=== PATIENT | female | born 1930 | race Caucasian/White ===

== ENCOUNTER 2018-11-11 10:18 | Emergency (ER) | payer MEDICARE, OTHER, MEDICAID ==
[2018-11-11] MEDS ORDERED: Sodium Chloride 0.9% 1,000 ML IV ONE ×2 (10:50→12:25)
[2018-11-11 11:23] LABS: ANION GAP 12.4 mmol/L (5-15); CHLORIDE,CL 102 mmol/L (98-115); SODIUM,NA 140 mmol/L (136-145)
[2018-11-11] MEDS ORDERED: Metoprolol Tartrate 5 MG/5 ML SDV IVPUSH ONE ×2 (12:11→12:52)
--- NOTE | 2018-11-11 12:18 | CR ---
[id number] RAD/RAD Chest PA And Lateral EXAM: RAD Chest PA And Lateral INDICATION: TACHYCARDIC, SHORTNESS OF BREATH. PATIENT HAS BAD LEFT COMPARISON: 2008. DISCUSSION: Cardiomediastinal silhouette is normal in size and contour. No infiltrate, effusion, pneumothorax, or edema. IMPRESSION: No acute findings in the chest. Onesimo Noguera MD 11/11/18 3609 Thank you for allowing us to participate in the care of your patient.
--- NOTE | 2018-11-11 13:56 | EDM.PDOC ---
ED HPI GENERAL MEDICAL PROBLEM - General Chief Complaint: General Stated Complaint: HR HIGH, BP LOW Time Seen by Provider: 11/11/18 10:30 Source of Information: Reports: Patient, Family (daughter) - History of Present Illness INITIAL COMMENTS - FREE TEXT/NARRATIVE: 88-year-old female presents to the emergency room with hypotension and tachycardia. She reports no symptoms. No dizziness. No chest pain. No shortness of breath. Her heart rate was running in the 120s to 130s. Her blood pressures were 80/40. She does take atenolol for high blood pressure. She is an ambulator uses a walker. She denies any recent illness fever chills nausea vomiting. She recently transferred to the [facility] where her daughter lives. She formerly lived in the fpc at [place] which now is closing. Her primary care doctor in the past is been Rashad Saha. She is now being cared for by the [facility] and [facility]. She has no complaints or concerns. She has no history of coronary artery disease or heart attack. No history of stroke. She feels in her normal state of health at this time. Onset: Today Onset Date: 11/11/18 Duration: Hour(s): Location: Reports: Generalized Severity: Mild Improves with: Reports: None Worsens with: Reports: None Context: Reports: Activity Associated Symptoms: Reports: No Other Symptoms - Related Data Allergies Allergy/AdvReac Type Severity Reaction Status Date / Time morphine Allergy Cannot Verified 11/11/18 11:33 Remember Penicillins Allergy Cannot Verified 11/11/18 11:33 Remember Home Meds: Home Meds Acetaminophen [Tylenol] 650 mg PO TID PRN 11/11/18 [History] Aspirin [Halfprin] 81 mg PO DAILY 11/11/18 [History] Atenolol 25 mg PO DAILY 11/11/18 [History] Calcium Carbonate/Vitamin D3 [Calcium 600 + Vit D 400 Softgl] 2 cap PO DAILY [History] Docusate Sodium 100 mg PO BID 11/11/18 [History] Lisinopril 5 tab PO DAILY 11/11/18 [History] Lutein 20 mg PO DAILY 11/11/18 [History] Multivit-Min/FA/Lycopene/Lut [Centrum Silver Tablet] 1 tab PO DAILY 11/11/18 [ History] Ranitidine HCl [Zantac 75] 75 mg PO BID 11/11/18 [History] guaiFENesin 200 mg PO Q4H PRN 11/11/18 [History] Past Medical History HEENT History: Reports: Cataract, Impaired Vision Cardiovascular History: Reports: High Cholesterol, Hypertension Gastrointestinal History: Reports: Chronic Constipation, GERD [employer] History: Reports: Musculoskeletal History: Reports: Fracture, Other (See Below) Other Musculoskeletal History: fracture to back,shoulder Neurological History: Reports: Other (See Below) Other Neuro History: cognitive declime Psychiatric History: Reports: Dementia Endocrine/Metabolic History: Reports: Diabetes, Type II, Osteoporosis - Past Surgical History Head Surgeries/Procedures: Reports: None HEENT Surgical History: Reports: Cataract Surgery Cardiovascular Surgical History: Reports: None GI Surgical History: Reports: Cholecystectomy, Colonoscopy Female Surgical History: Reports: Other (See Below) Other Female Surgeries/Procedures: fibroid cyst removed from ovary Endocrine Surgical History: Reports: None Neurological Surgical History: Reports: Laminectomy Musculoskeletal Surgical History: Reports: None Dermatological Surgical History: Reports: None Social & Family History - Family History Family Medical History: Noncontributory ED ROS GENERAL - Review of Systems Review Of Systems: See Below Constitutional: Reports: No Symptoms HEENT: Reports: Glasses Respiratory: Reports: No Symptoms Cardiovascular: Reports: Blood Pressure Problem. Denies: Chest Pain, Dyspnea on Exertion, Edema, Lightheadedness, Orthopnea, Palpitations, PND, Syncope Endocrine: Reports: No Symptoms GI/Abdominal: Reports: No Symptoms : Reports: No Symptoms Musculoskeletal: Reports: No Symptoms Skin: Reports: No Symptoms Neurological: Reports: No Symptoms Psychiatric: Reports: No Symptoms Hematologic/Lymphatic: Reports: No Symptoms Immunologic: Reports: No Symptoms ED EXAM, GENERAL - Physical Exam Exam: See Below Exam Limited By: No Limitations General Appearance: Alert, WD/WN, No Apparent Distress Eye Exam: Bilateral Eye: EOMI Ears: Normal External Exam, Hearing Grossly Normal Nose: Normal Inspection, Normal Mucosa Throat/Mouth: Normal Inspection, Normal Lips, Normal Oropharynx, Normal Voice, No Airway Compromise Head: Atraumatic, Normocephalic Neck: Normal Inspection, Supple, Non-Tender, Full Range of Motion. No: Lymphadenopathy (L), Lymphadenopathy (R) Respiratory/Chest: No Respiratory Distress, Lungs Clear, Normal Breath Sounds, No Accessory Muscle Use, Chest Non-Tender Cardiovascular: No Edema, No JVD, No Murmur, Tachycardia Peripheral Pulses: 2+: Carotid (L), Carotid (R), Dorsalis Pedis (L), Dorsalis Pedis (R) GI/Abdominal: Normal Bowel Sounds, Soft Back Exam: Normal Inspection, Full Range of Motion Extremities: Normal Inspection, Normal Range of Motion, Non-Tender Neurological: Alert, Oriented, Normal Cognition, No Motor/Sensory Deficits Psychiatric: Normal Affect, Normal Mood Skin Exam: Warm, Dry, Intact, Normal Color, No Rash Lymphatic: No Adenopathy EKG INTERPRETATION EKG Date: 11/11/18 Rhythm: A-Fib [place]: Normal QRS: RBBB ST-T: Normal QT: Normal Comparison: NA - No Prior EKG EKG Interpretation Comments: Atrial fibrillation with rapid ventricular response Right bundle branch block Course - Vital Signs Last Recorded V/S: Last Vital Signs Temp 99.1 F 11/11/18 11:29 Pulse 110 H 11/11/18 12:57 Resp 19 11/11/18 11:29 BP 124/56 L 11/11/18 12:57 Pulse Ox 95 11/11/18 11:29 - Orders/Labs/Meds Orders: Active Orders 24 hr Category Date Time Status EKG Documentation Completion [RC] ASDIRECTED Care 11/11/18 10:33 Active EKG 12 Lead [EK] Routine Ther 11/11/18 10:33 Ordered Labs: Laboratory Tests 11/11/18 11/11/18 Range/Units 10:45 10:45 WBC 7.70 (5.00-10.00) 10^3/uL RBC 4.50 (3.80-5.50) 10^6/uL Hgb 15.4 (12.0-16.0) g/dL Hct 43.5 (37.0-47.0) % MCV 96.7 H (82.0-92.0) fL MCH 34.2 H (27.0-31.0) pg MCHC 35.4 (32.0-36.0) g/dL RDW 11.8 (11.5-14.5) % Plt Count 209 (150-400) 10^3/uL MPV 9.4 (7.4-10.4) fL Immature Gran % (Auto) 0.0 (0.0-5.0) % Neut % (Auto) 66.2 (50.0-70.0) % Lymph % (Auto) 24.2 (20.0-40.0) % Sutter % (Auto) 7.0 (2.0-8.0) % Eos % (Auto) 2.3 (1.0-3.0) % Baso % (Auto) 0.3 (0.0-1.0) % Immature Gran # (Auto) 0.00 (0.00-0.50) 10^3/uL Neut # (Auto) 5.10 (2.50-7.00) 10^3/uL Lymph # (Auto) 1.86 (1.00-4.00) 10^3/uL Sutter # (Auto) 0.54 (0.10-0.80) 10^3/uL Eos # (Auto) 0.18 (0.10-0.30) 10^3/uL Baso # (Auto) 0.02 (0.00-0.10) 10^3/uL Sodium 140 (136-145) mmol/L Potassium 3.9 (3.3-5.3) mmol/L Chloride 102 (98-115) mmol/L Carbon Dioxide 29.5 (21.0-32.0) mmol/L Anion Gap 12.4 (5-15) mmol/L BUN 22 (6-25) mg/dL Creatinine 0.86 (0.51-1.17) mg/dL Est Cr Clr Drug Dosing TNP Estimated GFR (MDRD) > 60 mL/min Glucose 208 H (75 - 99) mg/dL Calcium 9.4 (8.7-10.3) mg/dL Troponin I 0.05 (0.00-0.070) ng/mL B-Natriuretic Peptide 301 H (0-100) pg/mL Meds: Medications Discontinued Medications Generic Name Dose Route Start Last Admin Trade Name Freq PRN Reason Stop Dose Admin Sodium Chloride 1,000 mls @ 999 mls/hr 11/11/18 10:50 11/11/18 10:50 Normal Saline IV 11/11/18 11:50 999 mls/hr .BOLUS ONE Administration Sodium Chloride 1,000 mls @ 999 mls/hr 11/11/18 12:25 11/11/18 12:26 Normal Saline IV 11/11/18 13:25 999 mls/hr .BOLUS ONE Administration Metoprolol Tartrate 5 mg 11/11/18 12:11 11/11/18 12:15 Lopressor IVPUSH 11/11/18 12:12 5 mg ONETIME ONE Administration Metoprolol Tartrate 5 mg 11/11/18 12:52 11/11/18 12:57 Lopressor IVPUSH 11/11/18 12:53 5 mg ONETIME ONE Administration - Radiology Interpretation Free Text/Narrative:: X-ray PA lateal Discussion : Cardiomediastinal silhouette is normal in size and contour infiltrate, effusion, pneumothorax, or edema Impression: No acute findings in the chest Departure - Departure Time of Disposition: 14:05 Disposition: DC/Tfer to [facility] Condition: Good Clinical Impression: Atrial fibrillation with RVR Hypotension Qualifiers: Hypotension type: unspecified hypotension type Qualified Code(s): I95.9 - Hypotension, unspecified - Discharge Information Instructions: Atrial Fibrillation, [id number], Preventing Atrial Fibrillation -Related Stroke Referrals: Amy Sparrow NP [Nurse Practitioner] - Cady Bowen MD [Primary Care Provider] - Forms: ED Department Discharge - My Orders Last 24 Hours: My Active Orders 11/11/18 10:33 EKG Documentation Completion [RC] ASDIRECTED EKG 12 Lead [EK] Routine - Assessment/Plan Last 24 Hours: My Active Orders 11/11/18 10:33 EKG Documentation Completion [RC] ASDIRECTED EKG 12 Lead [EK] Routine Assessment:: New-onset atrial fibrillation with RVR Hypotension resolved after fluid resuscitation 2 L normal saline Plan: 1. New onset of atrial fibrillation. Will start the patient on anticoagulation. Rate control was at 95-100 after 10 mg of metoprolol given. We will continue the patient on her atenolol 25 mg at this time. We'll give her 5 mg of [facility] [place] [facility] care will manage. 2. Patient was asymptomatic hypotensive and has responded nicely with 2 L of normal saline. Blood pressures are now running 120/77. 3. We'll need to encourage patient to continue to drink oral fluids daily to prevent dehydration.
[2018-11-11] MEDS ORDERED: Warfarin 2 MG Tab PO SCH (14:15)
== END 2018-11-11 14:35 ==
LOC: KA.ED 10:18
DX: I48.91 Unspecified atrial fibrillation (principal); I95.9 Hypotension, unspecified; E78.00 Pure hypercholesterolemia, unspecified; I10 Essential (primary) hypertension; K21.9 Gastro-esophageal reflux disease without esophagitis; E11.9 Type 2 diabetes mellitus without complications; Z88.5 Allergy status to narcotic agent; Z88.0 Allergy status to penicillin; Z79.82 Long term (current) use of aspirin; Z79.899 Other long term (current) drug therapy
CPT/HCPCS: 36415; 71046; 80048; 83880; 84484; 85025; 93005; 96361; 96374; 96376; 99285; J3490; J7030; 99284

== ENCOUNTER 2020-03-22 06:17 | Emergency (ER) | payer MEDICARE, OTHER, MEDICAID ==
--- NOTE | 2020-03-22 06:33 | EDM.PDOC ---
ED HPI GENERAL MEDICAL PROBLEM - General Chief Complaint: Cardiovascular Problem Stated Complaint: chest pain Time Seen by Provider: 03/22/20 06:32 Source of Information: Reports: Patient, EMS, [facility] Records History Limitations: Reports: Other (Memory concerns/dementia) - History of Present Illness INITIAL COMMENTS - FREE TEXT/NARRATIVE: Awoke this morning with chest pain/pressure mild breathing concern. Family was contacted and transport via ambulance was initiated. At the time ambulance arrived and since then there has been no chest pain nor shortness of breath. She was ambulating with use of walker when ambulance arrived for transport, denying any symptoms. Chronic left shoulder pain from a fall years ago is her only pain concern at this time. Denies chest pain, does not recall that it radiated when she did experience it this morning. Shoulder pain is palpable for point tenderness. Denies any aggravating factors or concerns precipitating this event today. Onset: Today, Sudden Duration: Minutes: Location: Reports: Chest Quality: Reports: Dull, Pressure Severity: Moderate Improves with: Reports: Rest Worsens with: Reports: None Associated Symptoms: Reports: No Other Symptoms - Related Data Allergies Allergy/AdvReac Type Severity Reaction Status Date / Time morphine Allergy Cannot Verified 03/22/20 06:40 Remember Penicillins Allergy Cannot Verified 03/22/20 06:40 Remember Home Meds: Home Meds Acetaminophen [Tylenol] 650 mg PO TID PRN 11/11/18 [History] Docusate Sodium 100 mg PO BID 11/11/18 [History] Multivit-Min/FA/Lycopen/Lutein [Centrum Silver Tablet] 1 tab PO DAILY 11/11/18 [History] atenoloL [Atenolol] 25 mg PO DAILY 11/11/18 [History] Calcium Carbonate/Vitamin D3 [Calcium 600 + Vit D Tablet] 2 tab PO DAILY 03/22/20 [History] Famotidine 20 mg PO DAILY 03/22/20 [History] Lutein [Natural Lutein] 20 mg PO DAILY 03/22/20 [History] Warfarin [Coumadin] 2.5 - 5 mg PO ASDIRECTED 03/22/20 [History] Past Medical History HEENT History: Reports: Cataract, Impaired Vision Cardiovascular History: Reports: Afib, High Cholesterol, Hypertension Gastrointestinal History: Reports: Chronic Constipation, GERD [employer] MAGISTRATE History: Reports: Musculoskeletal History: Reports: Fracture, Other (See Below) Other Musculoskeletal History: fracture to back,shoulder Neurological History: Reports: Other (See Below) Other Neuro History: cognitive declime Psychiatric History: Reports: Dementia Endocrine/Metabolic History: Reports: Diabetes, Type II, Osteoporosis - Infectious Disease History Infectious Disease History: Reports: Other (See Below) (parasitic infection, per LTC record) - Past Surgical History Head Surgeries/Procedures: Reports: None HEENT Surgical History: Reports: Cataract Surgery Cardiovascular Surgical History: Reports: None GI Surgical History: Reports: Cholecystectomy, Colonoscopy Female Surgical History: Reports: Other (See Below) Other Female Surgeries/Procedures: fibroid cyst removed from ovary Endocrine Surgical History: Reports: None Neurological Surgical History: Reports: Laminectomy Musculoskeletal Surgical History: Reports: None Dermatological Surgical History: Reports: None Social & Family History - Family History Family Medical History: Noncontributory ED ROS GENERAL - Review of Systems Review Of Systems: See Below Constitutional: Reports: No Symptoms HEENT: Reports: No Symptoms Respiratory: Reports: No Symptoms Cardiovascular: Reports: No Symptoms Endocrine: Reports: No Symptoms GI/Abdominal: Reports: No Symptoms : Reports: No Symptoms Musculoskeletal: Reports: Shoulder Pain (chronic with a past fall as cause of discomfort.) Neurological: Reports: Other (memory) Psychiatric: Reports: No Symptoms Hematologic/Lymphatic: Reports: No Symptoms Immunologic: Reports: No Symptoms ED EXAM, GENERAL - Physical Exam Exam: See Below Free Text/Narrative:: Alert appropriately responsive to discussion with no sign of distress, denying any chest pain nor shortness of breath. HEENT is negative to discharge or deformity. Sheri with no icterus no injection. Facial symmetry is noted with pink mucous membranes. Canals are patent with minimal cerumen, no irritation to the tympanic membranes. Neck is soft supple no rigidity, no lymphadenopathy, no carotid bruit's couple. Thorax is clear mildly diminished secondary of not taking deep breath. Rhonchi at the bases but no wheezes, no noted crackles. Cardiac is S1-S2 rate in the upper 80s with a grade 2/6 systolic murmur. Abdomen is soft bowel sounds are present there is no tenderness no flank tenderness. rectal was deferred. There is +2 edema to the lower extremities with skin warm and dry, capillary refill less than 3 seconds. She remains comfortable requesting a pillow to raise up her head with no distress or complaints. EKG INTERPRETATION EKG Date: 03/22/20 Time: 06:27 Rhythm: NSR Rate (Beats/Min): 93 P-Wave: Present QRS: RBBB ST-T: Normal QT: Normal Comparison: Change From Previous EKG (prior A-fib) Course - Vital Signs Last Recorded V/S: Last Vital Signs Temp 36.6 C 03/22/20 06:33 Pulse 80 03/22/20 07:38 Resp 18 03/22/20 07:38 BP 180/70 H 03/22/20 07:38 Pulse Ox 96 03/22/20 07:38 - Orders/Labs/Meds Orders: Active Orders 24 hr Category Date Time Status EKG 12 Lead [EK] Stat Ther 03/22/20 06:45 Ordered Labs: Laboratory Tests 03/22/20 03/22/20 03/22/20 Range/Units 06:30 06:30 06:30 WBC 6.72 (5.00-10.00) 10^3/uL RBC 4.15 (3.80-5.50) 10^6/uL Hgb 13.6 D (12.0-16.0) g/dL Hct 39.7 (37.0-47.0) % MCV 95.7 H (82.0-92.0) fL MCH 32.8 H (27.0-31.0) pg MCHC 34.3 (32.0-36.0) g/dL RDW 12.2 (11.5-14.5) % Plt Count 211 (150-400) 10^3/uL MPV 9.5 (7.4-10.4) fL Immature Gran % (Auto) 0.0 (0.0-5.0) % Neut % (Auto) 60.0 (50.0-70.0) % Lymph % (Auto) 29.5 (20.0-40.0) % [place] % (Auto) 7.7 (2.0-8.0) % Eos % (Auto) 2.5 (1.0-3.0) % Baso % (Auto) 0.3 (0.0-1.0) % Neut # (Auto) 4.03 (2.50-7.00) 10^3/uL Lymph # (Auto) 1.98 (1.00-4.00) 10^3/uL [place] # (Auto) 0.52 (0.10-0.80) 10^3/uL Eos # (Auto) 0.17 (0.10-0.30) 10^3/uL Baso # (Auto) 0.02 (0.00-0.10) 10^3/uL Immature Gran # (Auto) 0.00 (0.00-0.50) 10^3/uL PT 20.2 H (9.2-11.2) SEC INR 2.0 H (0.9-1.1) Sodium 134 L (136-145) mmol/L Potassium 3.9 (3.3-5.3) mmol/L Chloride 97 L (98-115) mmol/L Carbon Dioxide 28.5 (21.0-32.0) mmol/L Anion Gap 12.4 (5-15) mmol/L BUN 16 (6-25) mg/dL Creatinine 0.64 (0.51-1.17) mg/dL Est Cr Clr Drug Dosing 51.46 mL/min Estimated GFR (MDRD) > 60 mL/min Glucose 187 H (75 - 99) mg/dL Calcium 8.7 (8.7-10.3) mg/dL Total Bilirubin 0.7 (0.2-1.0) mg/dL AST 14 L (15-37) U/L ALT 16 (12-78) U/L Alkaline Phosphatase 62 (46-116) IU/L CK-MB (CK-2) 0.60 (0.00-4.30) ng/mL Troponin I 0.07 (0.00-0.070) ng/mL B-Natriuretic Peptide 121 H (0-100) pg/mL Total Protein 6.8 (6.4-8.2) g/dL Albumin 3.16 (3.00-4.80) g/dL - Re-Assessments/Exams Free Text/Narrative Re-Assessment/Exam: 03/22/20 07:13 After obtaining the second pillow she requested, she has been resting with her eyes closed. Denied any discomfort or concern when questioned. 03/22/20 08:[address] Zenaida Mccoy at 0835 hrs. to discuss negative findings for any cardiac involvement at this time. Normal sinus rhythm negative troponin, negative CK-MB, BNP slightly elevated at 125, compared to 300 at the time of her atrial fibrillation with rapid ventricular response analysis in 2019. Will return to the [facility] with no changes at this time. Continuing all medications as directed. Further orders to be obtained from [place] providers. Departure - Departure Time of Disposition: 09:10 Disposition: DC/Tfer to SNF 03 Reason for Transfer *Q: Other Condition: Fair Clinical Impression: Chest pain, Shoulder joint pain, Dementia Instructions: Shoulder Pain, [id number] Referrals: Cady Bowen MD [Primary Care Provider] - Forms: ED Department Discharge Additional Instructions: Cardiac work-up as well as chest x-ray show no acute abnormality. INR is therapeutic at 2.0 today. Phone contact with Dr. Zenaida Mccoy at 0835 hrs. to discuss negative findings for any cardiac involvement at this time. Normal sinus rhythm negative troponin, negative CK-MB, BNP slightly elevated at 125, compared to 300 at the time of her atrial fibrillation with rapid ventricular response analysis in 2019. Will return to the [facility] with no changes at this time. Continuing all medications as directed. Further orders to be obtained from [place] providers. Continue all medications and treatments as previously directed. Avoid exertional activity for the next 24 hours. Continue regular treatment for her chronic left shoulder pain as previously o rdered. Follow-up with [place] provider or [place] clinic in the next week for reevaluation as needed. Call or return if symptoms were to redevelop or other concerns occur. Sepsis Event Note (ED) - Focused Exam Vital Signs: Vital Signs Temp Pulse Resp BP Pulse Ox 03/22/20 07:38 80 18 180/70 H 96 03/22/20 06:33 36.6 C 85 16 157/81 H 94 L - Problem List & Annotations (1) Chest pain SNOMED Code(s): 44801599 Code(s): R07.9 - CHEST PAIN, UNSPECIFIED Status: Acute Priority: Medium Current Visit: Yes Annotation/Comment:: Atypical with no laboratory nor EKG findings for myocardial involvement. Discussion with Dr. Zenaida Mccoy and will return to [facility]. Qualifiers: Chest pain type: unspecified Qualified Code(s): R07.9 - Chest pain, unspecified (2) Shoulder joint pain SNOMED Code(s): 708879710 Code(s): M25.519 - PAIN IN UNSPECIFIED SHOULDER Status: Chronic Priority: Low Current Visit: Yes Qualifiers: Laterality: left Qualified Code(s): M25.512 - Pain in left shoulder (3) Dementia SNOMED Code(s): 79332669 Code(s): F03.90 - UNSPECIFIED DEMENTIA WITHOUT BEHAVIORAL DISTURBANCE Status: Acute Priority: Medium Current Visit: Yes Qualifiers: Dementia type: unspecified type Dementia behavioral disturbance: without behavioral disturbance Qualified Code(s): F03.90 - Unspecified dementia without behavioral disturbance - Problem List Review Problem List Initiated/Reviewed/Updated: Yes - My Orders Last 24 Hours: My Active Orders 03/22/20 06:45 EKG 12 Lead [EK] Stat - Assessment/Plan Last 24 Hours: My Active Orders 03/22/20 06:45 EKG 12 Lead [EK] Stat Plan: Cardiac work-up as well as chest x-ray show no acute abnormality. INR is therapeutic at 2.0 today. Phone contact with Dr. Zenaida Mccoy at 0835 hrs. to discuss negative findings for any cardiac involvement at this time. Normal sinus rhythm negative troponin, negative CK-MB, BNP slightly elevated at 125, compared to 300 at the time of her atrial fibrillation with rapid ventricular response analysis in 2019. Will return to the [facility] with no changes at this time. Continuing all medications as directed. Further orders to be obtained from [place] providers. Continue all medications and treatments as previously directed. Avoid exertional activity for the next 24 hours. Continue regular treatment for her chronic left shoulder pain as previously ordered. Follow-up with [place] provider or [place] clinic in the next week for reevaluation as needed. Call or return if symptoms were to redevelop or other concerns occur.
[2020-03-22 07:21] LABS: ANION GAP 12.4 mmol/L (5-15); CHLORIDE,CL 97 mmol/L (98-115); SODIUM,NA 134 mmol/L (136-145)
--- NOTE | 2020-03-22 07:42 | CR ---
[id number] RAD/RAD Chest PA And Lateral EXAM: RAD Chest PA And Lateral INDICATION: CHEST PAIN COMPARISON: November 11, 2018. DISCUSSION: Cardiomediastinal silhouette is normal in size and contour. No infiltrate, effusion, pneumothorax, or edema. Pulmonary hyperinflation. IMPRESSION: No acute cardiopulmonary abnormality. Kwasi Valdez DO 03/22/20 0740 Thank you for allowing us to participate in the care of your patient.
== END 2020-03-22 09:20 ==
LOC: KA.ED 06:17
DX: R07.89 Other chest pain (principal); M25.512 Pain in left shoulder; F03.90 Unspecified dementia, unspecified severity, without behavioral disturbance, psychotic disturbance, mood disturbance, and anxiety; I45.10 Unspecified right bundle-branch block; I10 Essential (primary) hypertension; I48.91 Unspecified atrial fibrillation; K21.9 Gastro-esophageal reflux disease without esophagitis; E11.9 Type 2 diabetes mellitus without complications; Z88.5 Allergy status to narcotic agent; Z88.0 Allergy status to penicillin; Z79.899 Other long term (current) drug therapy
CPT/HCPCS: 36415; 71046; 80053; 82553; 83880; 84484; 85025; 85610; 93005; 99284; 99285-25